=== PATIENT | female | born 1980 | race Caucasian/White ===

== ENCOUNTER → 2016-10-11 | Outpatient (CLI) | payer OTHER ==
[~2016-10-11] MED LIST: CLARITIN10 MG PO; PROPRANOLOL HCL40 M1; PROTONIX PO; ZOLOFT PO
--- NOTE | ~2016-10-11 | US98 ---
[facility] A Service of [facility] RADIOLOGY TEXT RESULTS PATIENT: YOHANNES SERRA LOCATION: [facility] : [birth year] UNIT #: [id number] AGE: [address]: DARLENE WATERS APRN SEX: F ORDER DR: [id number] [facility] [address] [place], [place] [address] [id number] O MR#: [id number] Acc #: [id number] NAME: YOHANNES SERRA : 1980 SEX: F STUDY DATE/TIME: 10/11/2016 15:50 UNIT: [facility] ROOM: STUDY DESCRIPTION: US Pelvic Non-OB Complete Attending Physician: Darlene Waters Aprn Referring Physician: Darlene Waters Aprn Ordering Physician: Darlene Waters Aprn Primary Care Physician: Darlene Waters Aprn MEDICAL IMAGING REPORT This report is preliminary unless electronic signature is present EXAM Transabdominal and transvaginal pelvic ultrasound. DATE OF EXAM 10/11/2016 HISTORY Diffuse pelvic pain for 3 years, with no known injury. TECHNIQUE Transabdominal and transvaginal pelvic ultrasound was performed. Endovaginal ultrasound was performed for attempted better visualization of the adnexal structures. FINDINGS The bladder is normal in appearance. The uterus measures 7.3 cm craniocaudal by 2.8 cm AP by 4.3 cm transverse. The endometrial stripe measures 9 mm. The left ovary measures 3.1 cm by 3.4 cm x 2.7 cm while the right ovary measures 2.4 cm x 1.5 cm x 2.2 cm. There is a 3.4 cm simple cyst on the left ovary. Color flow Doppler images show normal blood flow to both ovaries. There is minimal free fluid in the pelvis. IMPRESSION 3.4 cm left ovarian cyst. Otherwise, negative pelvic ultrasound. Dictated by... Wan Pope M.D. THIS IS AN ELECTRONICALLY VERIFIED REPORT Wan Pope M.D. at 10/12/2016 2:14 PM [facility] A Service of [facility] RADIOLOGY TEXT RESULTS PATIENT: YOHANNES SERRA LOCATION: [facility] : 80 UNIT #: [id number] AGE: [address]: DARLENE WATERS APRN SEX: F ORDER DR: Zahra TD: 10/11/2016 22:24 JOB #: [id number] MEDICAL IMAGING REPORT Page 1 of 1 COPY
== END | disposition home or self-care (01) ==
LOC: CWCC 15:36
DX: R10.2 Pelvic and perineal pain (principal); N83.292 Other ovarian cyst, left side
CPT/HCPCS: 76830; 76856